=== PATIENT | male | born 1965 | race Caucasian/White ===

== ENCOUNTER 2017-06-05 08:13 | Emergency (ER) | payer OTHER ==
[~2017-06-05] VITALS: Ht 175.3 cm; Wt 70.3 kg
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
--- NOTE | 2017-06-05 09:54 | NUR ---
Patient discharged in custody in stable condition. Written and verbal after care instructions given. Patient verbalizes understanding of instruction.
[2017-06-05 09:58] VITALS: BP 126/82
== END 2017-06-05 09:59 ==
LOC: ER 08:15
DX: S69.91XA Unspecified injury of right wrist, hand and finger(s), initial encounter (principal); E11.9 Type 2 diabetes mellitus without complications; G40.909 Epilepsy, unspecified, not intractable, without status epilepticus; I10 Essential (primary) hypertension; I25.2 Old myocardial infarction; Z59.0 Homelessness; Z88.0 Allergy status to penicillin; Z88.6 Allergy status to analgesic agent; Y04.2XXA Assault by strike against or bumped into by another person, initial encounter; Y93.89 Activity, other specified; Y92.89 Other specified places as the place of occurrence of the external cause; Y99.8 Other external cause status
CPT/HCPCS: 73130; 82962; 99284; A4606; Z7610